=== PATIENT | male | born 1985 | race Caucasian/White ===

== ENCOUNTER 2018-03-28 14:37 | Emergency (ER) | payer SELFPAY ==
[~2018-03-28] VITALS: Ht 172.7 cm; Wt 90.7 kg
[~2018-03-28 14:37] MED LIST: AMOXICILLIN500 MG PO
== END 2018-03-28 15:58 | disposition home or self-care (01) ==
LOC: ED 14:37
DX: S00.33XA Contusion of nose, initial encounter (principal); S00.11XA Contusion of right eyelid and periocular area, initial encounter; Y04.0XXA Assault by unarmed brawl or fight, initial encounter; Y93.89 Activity, other specified; Y92.89 Other specified places as the place of occurrence of the external cause; Y99.9 Unspecified external cause status

== ENCOUNTER 2019-11-03 12:25 | Emergency (ER) | payer SELFPAY ==
[~2019-11-03] VITALS: Ht 165.1 cm; Wt 96.2 kg
[2019-11-03] MEDS ORDERED: PREDNISONE20 M1 PO (15:00)
[2019-11-03] MEDS ORDERED: PROVENTIL HFA6.7 GM INH (15:00)
[2019-11-03] MEDS ORDERED: TAMIFLU 75MG CA75 MG PO (15:00)
== END 2019-11-03 15:12 | disposition home or self-care (01) ==
LOC: ED 12:25
DX: J10.1 Influenza due to other identified influenza virus with other respiratory manifestations (principal); J20.8 Acute bronchitis due to other specified organisms

== ENCOUNTER 2020-03-23 10:26 | Emergency (ER) | payer BC ==
[~2020-03-23] VITALS: Ht 165.1 cm; Wt 94.8 kg
[~2020-03-23 10:26] MED LIST changes: +PREDNISONE20 M1 PO; +PROVENTIL HFA6.7 GM INH; +TAMIFLU 75MG CA75 MG PO
[2020-03-23] MEDS ORDERED: POLYSPORIN OINT15 GM T (11:03)
== END 2020-03-23 11:16 | disposition home or self-care (01) ==
LOC: ED 10:26
DX: Z79.899 Other long term (current) drug therapy (principal); W45.8XXA Other foreign body or object entering through skin, initial encounter; Y93.89 Activity, other specified; Y92.89 Other specified places as the place of occurrence of the external cause; Y99.8 Other external cause status

== ENCOUNTER 2020-05-14 23:33 | Emergency (ER) | payer SELFPAY ==
[~2020-05-14] VITALS: Ht 165.1 cm; Wt 96.2 kg
[~2020-05-14 23:33] MED LIST changes: +POLYSPORIN OINT15 GM T
[2020-05-14 23:58] LABS: BASO # 0.1 10*3/uL (0.0-0.1); BASO % 0.4 % (0.0-1.0); EOS % 0.3 % (1.0-4.0); HEMATOCRIT 42.3 % (42.0-52.0); LYMPH # 1.7 10*3/uL (1.3-4.4); LYMPH % 12.7 % (27.0-41.0); MEAN CELL VOLUME 87.6 fl (80.0-94.0); MEAN CORPUSCULAR HGB 29.6 pg (27.0-31.0); MEAN CORPUSCULAR HGB CONC 33.8 g/dl (33.0-37.0); MEAN PLATELET VOLUME 10.2 fl (9.6-12.3); MONO # 0.8 10*3/uL (0.1-1.0); MONO % 6.2 % (3.0-9.0); NEUT # 10.7 10*3/uL (2.3-7.9); PLATELET COUNT AUTOMATED 259 10*3/uL (130-400); RED BLOOD COUNT 4.83 10*6/uL (4.50-5.90); RED CELL DISTRI WIDTH 12.2 % (0-14.5); WHITE BLOOD COUNT 13.4 10*3/uL (4.8-10.8)
[2020-05-15 00:14] LABS: ALBUMIN 3.8 gm/dl (3.1-4.5); ALKALINE PHOSPHATASE 56 U/L (45-117); BUN 12 mg/dl (7-24); CHLORIDE 107 mmol/L (98-107); POTASSIUM 3.7 mmol/L (3.5-5.1); SGOT/AST 28 IU/L (3-35); SGPT/ALT 48 U/L (12-78); SODIUM 138 mmol/L (136-145); TOTAL PROTEIN 7.7 gm/dL (6.4-8.2)
[2020-05-15 00:18] LABS: TROPONIN I < 0.015 ng/ml (<0.045)
== END 2020-05-15 03:30 | disposition home or self-care (01) ==
LOC: ED 23:33
PROVIDERS: Nurse Practitioner Family
DX: R07.89 Other chest pain (principal); Z79.899 Other long term (current) drug therapy

== ENCOUNTER 2021-06-28 23:37 | Emergency (ER) | payer SELFPAY ==
[2021-06-29 00:37] LABS: BASO # 0.1 10*3/uL (0.0-0.1); BASO % 0.4 % (0.0-1.0); EOS # 0.1 10*3/uL (0.0-0.4); EOS % 0.7 % (1.0-4.0); HEMATOCRIT 41.2 % (42.0-52.0); LYMPH # 2.5 10*3/uL (1.3-4.4); LYMPH % 20.6 % (27.0-41.0); MEAN CELL VOLUME 87.3 fl (80.0-94.0); MEAN CORPUSCULAR HGB 29.7 pg (27.0-31.0); MEAN PLATELET VOLUME 10.2 fl (9.6-12.3); MONO # 0.8 10*3/uL (0.1-1.0); MONO % 6.4 % (3.0-9.0); NEUT # 8.6 10*3/uL (2.3-7.9); NEUT % 71.5 % (47.0-73.0); PLATELET COUNT AUTOMATED 244 10*3/uL (130-400); RED BLOOD COUNT 4.72 10*6/uL (4.50-5.90); RED CELL DISTRI WIDTH 12.3 % (0-14.5)
[2021-06-29 01:19] LABS: ALBUMIN 3.7 gm/dl (3.1-4.5); ALKALINE PHOSPHATASE 54 U/L (45-117); BUN 13 mg/dl (7-24); CHLORIDE 103 mmol/L (98-107); CREATININE 1.15 mg/dL (0.70-1.30); SGOT/AST 32 IU/L (3-35); SGPT/ALT 67 U/L (12-78); SODIUM 137 mmol/L (136-145); TOTAL PROTEIN 7.3 gm/dL (6.4-8.2)
[2021-06-29 01:21] LABS: TROPONIN I < 0.015 ng/ml (<0.045)
== END 2021-06-29 05:24 | disposition home or self-care (01) ==
LOC: ED 23:37
PROVIDERS: Emergency Medicine
DX: R07.89 Other chest pain (principal)